=== PATIENT | female | born 1955 | race Caucasian/White ===

== ENCOUNTER 2021-06-02 11:29 | Emergency (ER) | payer MEDICARE, BC ==
[~2021-06-02] VITALS: Ht 152.4 cm; Wt 89.9 kg
--- NOTE | 2021-06-02 11:46 | PHYS DOC ---
Adult General Chief Complaint Chief Complaint: ABDOMINAL PAIN HPI HPI Patient is a 66-year-old female presenting via EMS for multiple complaints. First, patient complains she suffered a mechanical fall 3 days prior to arrival while at home. States she fell and hit the anterior portion of her head overl tarik her right eyebrow. States she felt a small goose bump on her head and was worried because she has had ongoing pain and takes Plavix. In addition, patient reports she started having generalized abdominal pain that was sharp in nature and nonfocal. This started yesterday evening and progressed throughout the night. Ongoing symptoms this morning prompted her to call EMS for transport to our facility for evaluation. She has history of 2 prior C-sections and cholecystectomy, no other intra-abdominal surgeries. She does have a history of diverticulitis and admits this pain feels similar to prior episodes. She has an extensive past medical history concerning for CAD, heart failure preserved ejection fraction and poorly controlled insulin-dependent type 2 diabetes. She has had no recent sick contacts or travel. She is fully vaccinated against COVID-19 Review of Systems Review of Systems Fourteen body systems of review of systems have been reviewed. See HPI for pertinent positives and negative responses, other adorno all other systems are negative, non-pertinent or non-contributory Physical Exam Physical Exam Constitutional: Well developed, well nourished, no acute distress, non-toxic appearance. HENT: Normocephalic, atraumatic, bilateral external ears normal, oropharynx moist, no oral exudates, nose normal. Eyes: PERRLA, EOMI, conjunctiva normal, no discharge. Neck: Normal range of motion, no tenderness, supple, no stridor. Cardiovascular: Heart rate regular, sinus rhythm, no murmurs rubs or gallops Lungs & Thorax: Bilateral breath sounds clear to auscultation Abdomen: Bowel sounds normal, soft, there is generalized tenderness with palpation with guarding present, there is rebound, no masses, no pulsatile masses. Skin: Warm, dry, no erythema, no rash. Back: No tenderness, no CVA tenderness. Extremities: No tenderness, no cyanosis, no clubbing, ROM intact, no edema. Neurologic: Alert and oriented X 3, grossly normal motor & sensory function, no focal deficits noted. Psychologic: Anxious affect and mood Current Patient Data Vital Signs Vital Signs Date Time Temp Pulse Resp B/P (MAP) Pulse Ox O2 Delivery O2 Flow Rate FiO2 06/02/21 11:35 98.7 93 17 92/47 (62) 99 Room Air Vital Signs Date Time Temp Pulse Resp B/P (MAP) Pulse Ox O2 Delivery O2 Flow Rate FiO2 06/02/21 11:35 98.7 93 17 92/47 (62) 99 Room Air Lab Results Laboratory Tests Test 06/02/21 12:18 06/02/21 12:33 Glucose (Fingerstick) 108 mg/dL White Blood Count 5.4 x10^3/uL Red Blood Count 3.65 x10^6/uL Hemoglobin 11.4 g/dL Bedside Hemoglobin gm/dL Hematocrit 34.0 % Bedside Hematocrit % Mean Corpuscular Volume 93 fL Mean Corpuscular Hemoglobin 31 pg Mean Corpuscular Hemoglobin Concent 33 g/dL Red Cell Distribution Width 13.8 % Platelet Count 287 x10^3/uL Neutrophils (%) (Auto) 71 % Lymphocytes (%) (Auto) 19 % Monocytes (%) (Auto) 6 % Eosinophils (%) (Auto) 4 % Basophils (%) (Auto) 1 % Neutrophils # (Auto) 3.8 x10^3uL Lymphocytes # (Auto) 1.0 x10^3/uL Monocytes # (Auto) 0.3 x10^3/uL Eosinophils # (Auto) 0.2 x10^3/uL Basophils # (Auto) 0.0 x10^3/uL Bedside Sodium 133 mmol/L Sodium Level mmol/L Bedside Potassium 3.7 mmol/L Potassium Level mmol/L Bedside Chloride 97 mmol/L Chloride Level mmol/L Carbon Dioxide Level 25 mmol/L Bedside Total CO2 25 mmol/L Anion Gap 15 mmol/L Bedside Blood Urea Nitrogen mg/dL Blood Urea Nitrogen 35 mg/dL Creatinine 2.5 mg/dL Bedside Creatinine mg/dL Estimated GFR (Cockcroft-Gault) 19.4 BUN/Creatinine Ratio 14 Glucose Level mg/dL Lactic Acid Level 2.5 mmol/L Calcium Level 9.6 mg/dL Bedside Ionized Calcium (Kurt) mmol/L Total Bilirubin 0.2 mg/dL Aspartate Amino Transf (AST/SGOT) 36 U/L Alanine Aminotransferase (ALT/SGPT) 37 U/L Alkaline Phosphatase 78 U/L Troponin I High Sensitivity 10 ng/L Total Protein 6.5 g/dL Albumin 3.4 g/dL Albumin/Globulin Ratio 1.1 Lipase 33 U/L SARS-CoV-2 Antigen (Rapid) Negative Current Medications Medications (Trade) Dose Ordered Sig/Koko Route PRN Reason Start Time Stop Time Status Last Admin Dose Admin Iohexol (Omnipaque 300 Mg/ml) 75 ml 1X ONCE IV 06/02/21 12:00 06/02/21 11:52 DC Sodium Chloride 500 ml @ 0 mls/hr 1X ONCE IV 06/02/21 12:00 06/02/21 12:36 DC 06/02/21 12:20 Metoclopramide HCl (Reglan Vial) 10 mg 1X ONCE IVP 06/02/21 13:00 06/02/21 13:01 DC 06/02/21 13:06 Fentanyl Citrate (Fentanyl 2ml Vial) 50 mcg 1X ONCE IVP 06/02/21 13:00 06/02/21 13:02 DC 06/02/21 13:06 Fentanyl Citrate (Fentanyl 2ml Vial) 100 mcg STK-MED ONCE .ROUTE 06/02/21 13:02 06/02/21 13:02 DC EKG EKG EKG ordered and interpreted by myself at 1204 hrs. is sinus rhythm at 78 bpm, un remarkable intervals, no axis deviation, no obvious ischemic findings, no STEMI Radiology/Procedures Radiology/Procedures CT HEAD/BRAIN WO History: Reason: fall to head on plavix / Spl. Instructions: / History:. Pain Comparison: None. Technique: Noncontrast CT imaging was performed of the head. Exposure: One or more of the following individualized dose reduction techniques were utilized for this examination: 1. Automated exposure control 2. Adjustment of the mA and/or kV according to patient size 3. Use of iterative reconstruction technique. Findings: No intracranial hemorrhage. No mass effect. No hydrocephalus. Extra-axial spaces are unremarkable. Imaged orbits are unremarkable. Imaged paranasal sinuses and mastoid air cells are clear. No acute calvarial fracture. Impression: 1. No acute intracranial abnormality. Electronically signed by: Lake Jenkins DO (06/02/2021 12:33 PM) [facility] ////////////// XR CHEST 1V History: Reason: CHF / Spl. Instructions: / History: Comparison: None. Findings: No consolidation or pleural effusion. Normal heart size. No pneumothorax. Impression: 1. No acute cardiopulmonary process. Electronically signed by: Lake Jenkins DO (06/02/2021 12:34 PM) [facility] ////////////////////////////////////////// CT ABDOMEN+PELVIS WO History: Reason: Pain R/O ILEUS VS SBO / Spl. Instructions: / History: Technique: Noncontrast examination of the abdomen and pelvis. Coronal and sagittal reconstructions were performed. Exposure: One or more of the following individualized dose reduction techniques were utilized for this examination: 1. Automated exposure control 2. Adjustment of the mA and/or kV according to patient size 3. Use of iterative reconstruction technique. Comparison: None Findings: Lower chest: No consolidation or pleural effusion. Abdomen and pelvis: The liver, spleen, adrenal glands, and pancreas are unremarkable. Prior cholecystectomy. IVC filter noted. Mild left renal atrophy. No renal calculus. No hydronephrosis. Decompressed urinary bladder. Decompressed transverse colon. Normal appendix. No evidence of bowel obstruction. No pathologic lymphadenopathy. No ascites. Atheromatous plaque throughout the nonaneurysmal abdominal aorta and branch vessels. Bones: Multilevel lumbar spondylosis most prominent L4-5 and L5-S1. Impression: 1. No acute abdominal or pelvic pathology. Electronically signed by: Lake Jenkins DO (06/02/2021 12:41 PM) [facility] Heart Score C/O Chest Pain: No HEART Score for Chest Pain: HEART Score for Chest Pain Response (Comments) Value History Slighlty/Non-Suspicious 0 ECG Normal 0 Age >45 - < 65 1 Risk Factors >3 Risk Factors or Hx CAD 2 Troponin < Normal Limit 0 Total 3 Risk Factors: Risk Factors: DM, Current or recent (<one month) smoker, HTN, HLP, family history of CAD, obesity. Risk Scores: Risk Factors: DM, Current or recent (<one month) smoker, HTN, HLP, family history of CAD, obesity. Course & Med Decision Making Course & Med Decision Making ABCs unremarkable. I disclosed entirety of ER findings that were all nonconcerning without any further indication for further diagnostic work-up in ER setting or need for hospital transfer or hospitalization. Continued supportive care and close glycemic control with adherence to previously prescribed medication regimen advised. Plan of care discussed at length with need for close outpatient follow-up to review today's ER visit stressed. Strict return precautions were also discussed at length with good understanding verbalized by patient. Patient voiced understanding and agreement with the plan. Patient knows to come back for repeat evaluation if concerning signs or symptoms present prior to outpatient follow-up. Hemodynamically stable, ambulatory and we ll-appearing at time of disposition. Dragon Disclaimer Dragon Disclaimer This electronic medical record was generated, in whole or in part, using a voice recognition dictation system. Departure Departure: Impression: Primary Impression: Abdominal pain Additional Impressions: History of recent fall Diabetic gastroparesis associated with type 2 diabetes mellitus Disposition: HOME / SELF CARE / HOMELESS Condition: STABLE Additional Instructions: You have been evaluated in the Emergency Department today for abdominal pain. Your evaluation was not suggestive of any emergent condition requiring medical intervention at this time. However, some abdominal problems make take more time to appear. Therefore, it is important for you to watch for any new symptoms or worsening of your current condition. You have been prescribed Reglan which is an antinausea medication that should help alleviate some of your symptoms in addition to your gastroparesis symptoms Need to contact your primary care physician first thing tomorrow morning to review ER visit today and need for close outpatient follow-up within upcoming 48 hours Return to the Emergency Department if you experience worsening pain, persistent fevers greater than 100.4, recurrent vomiting, blood in vomit, blood in stool, dark tarry stool, chest pain, difficulty breathing, or any other concerning symptoms. Scripts Metoclopramide Hcl (REGLAN) 10 Mg Tablet 1 TAB PO TID for nausea, #30 TAB 0 Refills before food and bedtime Prov: CHARITO ALVARADO DO 06/02/21 Problem Qualifiers CHARITO ALVARADO DO Jun 02, 2021 11:45
[2021-06-02] MEDS ORDERED: IOHEXOL 300 MG/ML 75 ML VIAL. IV ONE (12:00)
[2021-06-02] MEDS ORDERED: IV NORMAL SALINE 500ML 500 ML IV ONE (12:00)
--- NOTE | 2021-06-02 12:07 | EKG ---
[address] [address] Test Date: 2021-06-02 Test Time: 11:55:30 Pat Name: JERICA FERRERA Department: Room: Gender: F On Call: JOSE E : 1955 Requested By: CHARITO ALVARADO Order Number: [id number] Reading MD: Rayo Stinson Measurements Intervals [place] Rate: 78 P: 47 CA: 180 QRS: 15 QRSD: 64 T: 75 QT: 390 QTc: 448 Interpretive Statements SINUS RHYTHM QRS(T) CONTOUR ABNORMALITY CONSISTENT WITH POSSIBLE OLD ANTEROSEPTAL INFARCT T ABNORMALITY IN HIGH LATERAL LEADS ABNORMAL ECG RI6.02 No previous ECG available for comparison Electronically Signed On 06-03-2021 9:02:34 [employer] by Rayo Stinson
--- NOTE | 2021-06-02 12:35 | RAD ---
CT HEAD/BRAIN WO History: Reason: fall to head on plavix / Spl. Instructions: / History:. Pain Comparison: None. Technique: Noncontrast CT imaging was performed of the head. Exposure: One or more of the following individualized dose reduction techniques were utilized for thi s examination: 1. Automated exposure control 2. Adjustment of the mA and/or kV according to patient size 3. Use of iterative reconstruction technique. Findings: No intracranial hemorrhage. No mass effect. No hydrocephalus. Extra-axial spaces are unremarkable. Imaged orbits are unremarkable. Imaged paranasal sinuses and mastoid air cells are clear. No acute ca lvarial fracture. Impression: 1. No acute intracranial abnormality. Electronically signed by: Lake Jenkins DO (06/02/2021 12:33 PM) [facility]
--- NOTE | 2021-06-02 12:37 | RAD ---
XR CHEST 1V History: Reason: CHF / Spl. Instructions: / History: Comparison: None. Findings: No consolidation or pleural effusion. Normal heart size. No pneumothorax. Impression: 1. No acute cardiopulmonary process. Electronically signed by: Lake Jenkins DO (06/02/2021 12:34 PM) [facility]
--- NOTE | 2021-06-02 12:44 | RAD ---
CT ABDOMEN+PELVIS WO History: Reason: Pain R/O ILEUS VS SBO / Spl. Instructions: / History: Technique: Noncontrast examination of the abdomen and pelvis. Coronal and sagittal reconstructions we re performed. Exposure: One or more of the following individualized dose reduction techniques were utilized for thi s examination: 1. Automated exposure control 2. Adjustment of the mA and/or kV according to patient size 3. Use of iterative reconstruction technique. Comparison: None Findings: Lower chest: No consolidation or pleural effusion. Abdomen and pelvis: The liver, spleen, adrenal glands, and pancreas are unremarkable. Prior cholecyst ectomy. IVC filter noted. Mild left renal atrophy. No renal calculus. No hydronephrosis. Decompressed urinary bladder. Decompressed transverse colon. Normal appendix. No evidence of bowel obstruction. No pathologic lymph adenopathy. No ascites. Atheromatous plaque throughout the nonaneurysmal abdominal aorta and branch v essels. Bones: Multilevel lumbar spondylosis most prominent L4-5 and L5-S1. Impression: 1. No acute abdominal or pelvic pathology. Electronically signed by: Lake Jenkins DO (06/02/2021 12:41 PM) [facility]
[2021-06-02] MEDS ORDERED: METOCLOPRAMIDE HCL 10 MG/2 ML VIAL. IVP ONE (13:00)
[2021-06-02 13:05] LABS: BASO % 1 % (0-3); EOS # 0.2 x10^3/uL (0.0-0.7); EOS % 4 % (0-3); HEMOGLOBIN 11.4 g/dL (12.0-15.5); LYMPH % 19 % (24-48); MEAN CORPUSCULAR HEMOGLOBIN 31 pg (25-35); MEAN CORPUSCULAR HGB CONC 33 g/dL (31-37); MEAN CORPUSCULAR VOLUME 93 fL (79-100); MONO # 0.3 x10^3/uL (0.0-1.1); MONO % 6 % (0-9); NEUT # 3.8 x10^3uL (1.8-7.7); NEUT % 71 % (31-73); PLATELET COUNT 287 x10^3/uL (140-400); RED BLOOD COUNT 3.65 x10^6/uL (3.50-5.40); RED CELL DISTRIBUTION WIDTH 13.8 % (11.5-14.5); WHITE BLOOD COUNT 5.4 x10^3/uL (4.0-11.0)
[2021-06-02 13:16] LABS: ANION GAP 14 (6-14); BLOOD UREA NITROGEN 35 mg/dL (7-20); BUN/CREATININE RATIO 14 (6-20); CALCIUM 9.6 mg/dL (8.5-10.1); CARBON DIOXIDE 25 mmol/L (21-32); CREATININE 2.5 mg/dL (0.6-1.0); GFR 19.4; GLUCOSE 104 mg/dL (70-99)
[2021-06-02 13:19] LABS: POTASSIUM ISTAT 3.7 mmol/L (3.5-5.0)
[2021-06-02 13:22] LABS: ALBUMIN 3.4 g/dL (3.4-5.0); ALBUMIN/GLOBULIN RATIO 1.1 (1.0-1.7); ALK PHOS 78 U/L (46-116); ALT (SGPT) 37 U/L (14-59); AST (SGOT) 36 U/L (15-37); LIPASE 33 U/L (73-393); SODIUM ISTAT 133 mmol/L (135-145); TOTAL BILIRUBIN 0.2 mg/dL (0.2-1.0); TOTAL PROTEIN 6.5 g/dL (6.4-8.2)
[2021-06-02] MEDS ORDERED: METO10TA81 PO (14:14)
[2021-06-02 14:45] VITALS: BP 142/68
== END 2021-06-02 15:00 | disposition home or self-care (01) ==
LOC: ER 11:29
DX: E11.43 Type 2 diabetes mellitus with diabetic autonomic (poly)neuropathy (principal); K31.84 Gastroparesis; R10.84 Generalized abdominal pain; I25.10 Atherosclerotic heart disease of native coronary artery without angina pectoris; Z20.822 Contact with and (suspected) exposure to COVID-19; W18.09XA Striking against other object with subsequent fall, initial encounter; Y93.89 Activity, other specified; Y92.89 Other specified places as the place of occurrence of the external cause; Y99.8 Other external cause status
CPT/HCPCS: 70450; 71045; 74176; 80047; 80053; 82947; 83690; 84484; 85025; 87040; 87426; 93005; 96361; 96374; 96375; 96376; 99285; C9803; J2765; J3010; J7040; U0003

== ENCOUNTER 2021-11-17 17:29 | Emergency (ER) | payer MEDICARE, BC ==
[~2021-11-17] VITALS: Ht 152.4 cm; Wt 73.9 kg
[~2021-11-17 17:29] MED LIST: ACET325T21 PO; ALLO100T PO; ASCO500C PO; ASPI-630 PO; ATORVASTATIN CA80 MG PO; CALC0.2530 PO; CARV12.547 PO; CLOP75TA PO; CYAN50009 PO; DOCU-109 PO; DULO60CA7 PO; FENT1PAT15 TD; FERR325T14 PO; FOLI20CA PO; GABA600T7 PO; HYDR-2868 PO; HYDR2TAB31 PO; ISOS60TA55 PO; LEVO125T70 PO; MAGN400C PO; METO10TA81 PO; METO2.5T PO; MULT-245 PO; NITR0.4T22 SL; NYST15PO9 TP; OXYB5TAB10 PO; PANT40TA6 PO; TORS20TA2 PO; VITA1TAB31 PO
[2021-11-17 18:56] LABS: BASO % 1 % (0-3); EOS # 0.4 x10^3/uL (0.0-0.7); EOS % 5 % (0-3); HEMATOCRIT 33.7 % (36.0-47.0); HEMOGLOBIN 11.1 g/dL (12.0-15.5); LYMPH # 1.5 x10^3/uL (1.0-4.8); LYMPH % 18 % (24-48); MEAN CORPUSCULAR HEMOGLOBIN 31 pg (25-35); MEAN CORPUSCULAR HGB CONC 33 g/dL (31-37); MEAN CORPUSCULAR VOLUME 93 fL (79-100); MONO # 0.4 x10^3/uL (0.0-1.1); MONO % 5 % (0-9); NEUT # 5.9 x10^3uL (1.8-7.7); NEUT % 72 % (31-73); PLATELET COUNT 244 x10^3/uL (140-400); RED BLOOD COUNT 3.63 x10^6/uL (3.50-5.40); WHITE BLOOD COUNT 8.2 x10^3/uL (4.0-11.0)
[2021-11-17 18:57] LABS: CALCIUM 8.8 mg/dL (8.5-10.1); CREATININE 1.6 mg/dL (0.6-1.0); GFR 32.5; POTASSIUM 4.7 mmol/L (3.5-5.1)
[2021-11-17 19:04] LABS: ALBUMIN 2.9 g/dL (3.4-5.0); MAGNESIUM 2.1 mg/dL (1.8-2.4); TOTAL BILIRUBIN 0.2 mg/dL (0.2-1.0); TOTAL PROTEIN 5.8 g/dL (6.4-8.2)
--- NOTE | 2021-11-17 19:20 | RAD ---
Exam Date: 11/17/2021 6:[address] HEAD/BRAIN WO Indication: Reason: weakness / Spl. Instructions: / History: . TECHNIQUE: Head CT was performed without intravenous contrast. One or more of the following dose re duction techniques were utilized: *Automated exposure control (AEC) *Adjustment of mA and/or kV according to patient size *Use of iterative reconstruction technique *CT scan done according to ALARA, or ALARA/IMAGE GENTLY COMPARISON: October 29, 2021 FINDINGS: The ventricles and sulci are prominent consistent with cerebral volume loss. Patchy ill-defined low attenuation areas in the subcortical and periventricular white matter bilaterally are consistent with microvascular disease. There is no evidence of acute intracranial hemorrhage, extra-axial collecti on, mass effect, midline shift, or acute territorial infarct. No lesion of the skull base or the calv arium is seen. The visualized paranasal sinuses, mastoid air cells and orbits are normal in appearanc e. IMPRESSION: No evidence for acute intracranial abnormality. Volume loss and microvascular disease. Electronically signed by: Anibal Lewis MD (11/17/2021 7:17 PM) [id number]
--- NOTE | 2021-11-17 19:22 | EKG ---
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
--- NOTE | 2021-11-17 19:29 | PHYS DOC ---
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 "I have also felt very weak". Patient states that she was just discharged from the ICU for meningitis and also had a stent placed while in the hospital. Patient is denying chest pain, shortness of breath. Denies fevers. History of hypertension, hyperlipidemia, renal disease, AR. (MICKIE PALMER APRN) Review of Systems: Review of Systems: ROS At least 10 ROS systems have been reviewed and are negative except as documented in the HPI. General: Negative except as outlined in HPI above. Skin: Negative except as outlined in HPI above. HEENT: Negative except as outlined in HPI above. Neck: Negative except as outlined in HPI above. Respiratory: Negative except as outlined in HPI above.. Cardiovascular: Negative except as outlined in HPI above. Abdomen: Negative except as outlined in HPI above. : Negative except as outlined in HPI above. Back/MSK: Negative except as outlined in HPI above. Neuro: Negative except as outlined in HPI above. Psych: Negative except as outlined in HPI above. (MICKIE PALMER APRN) Allergies: Allergies: Allergies Coded Allergies Type Severity Reaction Last Updated Verified morphine Allergy Severe 06/02/21 Yes oxycodone Allergy Severe 06/02/21 Yes pregabalin Allergy Severe 06/02/21 Yes (MICKIE PALMER APRN) Physical Exam: PE: Constitutional: Well developed, well nourished, no acute distress, non-toxic appearance. [] HENT: Normocephalic, atraumatic, bilateral external ears normal, oropharynx moist, no oral exudates, nose normal. [] Eyes: PERRLA, EOMI, conjunctiva normal, no discharge. [] Neck: Normal range of motion, no tenderness, supple, no stridor. [] Cardiovascular:Heart rate regular rhythm, no murmur [] Lungs & Thorax: Bilateral breath sounds clear to auscultation [] Abdomen: Bowel sounds normal, soft, no tenderness, no masses, no pulsatile masses. [] Skin: Warm, dry, no erythema, no rash. [] Back: No tenderness, no CVA tenderness. [] Extremities: No tenderness, no cyanosis, no clubbing, ROM intact, no edema. [] Neurologic: Alert and oriented X 3, normal motor function, normal sensory function, no focal deficits noted. [] Psychologic: Affect normal, judgement normal, mood normal. [] (MICKIE PALMER APRN) Current Patient Data: Labs: Laboratory Tests Test 11/17/21 18:10 White Blood Count 8.2 x10^3/uL (4.0-11.0) Red Blood Count 3.63 x10^6/uL (3.50-5.40) Hemoglobin 11.1 g/dL (12.0-15.5) L Hematocrit 33.7 % (36.0-47.0) L Mean Corpuscular Volume 93 fL (79-100) Mean Corpuscular Hemoglobin 31 pg (25-35) Mean Corpuscular Hemoglobin Concent 33 g/dL (31-37) Red Cell Distribution Width 15.0 % (11.5-14.5) H Platelet Count 244 x10^3/uL (140-400) Neutrophils (%) (Auto) 72 % (31-73) Lymphocytes (%) (Auto) 18 % (24-48) L Monocytes (%) (Auto) 5 % (0-9) Eosinophils (%) (Auto) 5 % (0-3) H Basophils (%) (Auto) 1 % (0-3) Neutrophils # (Auto) 5.9 x10^3uL (1.8-7.7) Lymphocytes # (Auto) 1.5 x10^3/uL (1.0-4.8) Monocytes # (Auto) 0.4 x10^3/uL (0.0-1.1) Eosinophils # (Auto) 0.4 x10^3/uL (0.0-0.7) Basophils # (Auto) 0.0 x10^3/uL (0.0-0.2) Sodium Level 134 mmol/L (136-145) L Potassium Level 4.7 mmol/L (3.5-5.1) Chloride Level 98 mmol/L (98-107) Carbon Dioxide Level 32 mmol/L (21-32) Anion Gap 4 (6-14) L Blood Urea Nitrogen 28 mg/dL (7-20) H Creatinine 1.6 mg/dL (0.6-1.0) H Estimated GFR (Cockcroft-Gault) 32.5 BUN/Creatinine Ratio 18 (6-20) Glucose Level 143 mg/dL (70-99) H Calcium Level 8.8 mg/dL (8.5-10.1) Magnesium Level 2.1 mg/dL (1.8-2.4) Total Bilirubin 0.2 mg/dL (0.2-1.0) Aspartate Amino Transferase (AST) 15 U/L (15-37) Alanine Aminotransferase (ALT) 26 U/L (14-59) Alkaline Phosphatase 102 U/L (46-116) Troponin I High Sensitivity 16 ng/L (4-50) Total Protein 5.8 g/dL (6.4-8.2) L Albumin 2.9 g/dL (3.4-5.0) L Albumin/Globulin Ratio 1.0 (1.0-1.7) Lipase 28 U/L (73-393) L (MICKIE PALMER VP DATA) EKG: EKG: [] (MICKIE PALMER VP DATA) Radiology/Procedures: Radiology/Procedures: []Exam Date: 11/17/2021 6:[address] HEAD/BRAIN WO Indication: Reason: weakness / Spl. Instructions: / History: . TECHNIQUE: Head CT was performed without intravenous contrast. One or more of the following dose reduction techniques were utilized: *Automated exposure control (AEC) *Adjustment of mA and/or kV according to patient size *Use of iterative reconstruction technique *CT scan done according to ALARA, or MEGANRA/IMAGE GENTLY COMPARISON: October 29, 2021 FINDINGS: The ventricles and sulci are prominent consistent with cerebral volume loss. P atchy ill-defined low attenuation areas in the subcortical and periventricular white matter bilaterally are consistent with microvascular disease. There is no evidence of acute intracranial hemorrhage, extra-axial collection, mass effect, midline shift, or acute territorial infarct. No lesion of the skull base or the calvarium is seen. The visualized paranasal sinuses, mastoid air cells and orbits are normal in appearance. IMPRESSION: No evidence for acute intracranial abnormality. Volume loss and microvascular disease. Electronically signed by: Anibal Lewis MD (11/17/2021 7:17 PM) [id number] (MICKIE PALMER APRN) Heart Score: C/O Chest Pain: No Risk Factors: Risk Factors: DM, Current or recent (<one month) smoker, HTN, HLP, family history of CAD, obesity. Risk Scores: Score 0 - 3: 2.5% MACE over next 6 weeks - Discharge Home Score 4 - 6: 20.3% MACE over next 6 weeks - Admit for Clinical Observation Score 7 - 10: 72.7% MACE over next 6 weeks - Early Invasive Strategies (MICKIE PALMER APRN) Course & Med Decision Making: Course & Med Decision Making Pertinent Labs and Imaging studies reviewed. (See chart for details) [] 62 4F who presents with nausea/vomiting since this morning. Patient was just recently discharged from [facility] after having a stent placed along with staying in the ICU for meningitis. Patient reports ataxia since she got out of the hospital and has had multiple falls. Patient also reports trouble finding her words and weakness. Patient does currently take at home oral Dilaudid for gastroparesis. Patient is afebrile. Denying chest pain or shortness of breath. Work-up in ER consisted of CBC, CMP, urinalysis, chest x- ray, CT head. . CT head was unremarkable. NIH of 2. Troponin is negative. BUN 28, creatinine of 1.6, which is baseline for patient. All other labs are unremarkable. I discussed with patient that it would be in her best interest to be admitted for further management and testing. Patient agrees with admission plan. I conta cted Dr. Hills who will be accepting patient at [facility] for further testing. Patient will be admitted for ataxia, weakness, nausea vomiting (MICKIE PALMER APRN) Dragon Disclaimer: Dragon Disclaimer: This electronic medical record was generated, in whole or in part, using a voice recognition dictation system. (MICKIE PALMER APRN) Departure Departure: Impression: Primary Impression: Ataxia Additional Impressions: Generalized weakness Nausea & vomiting Qualified Codes: R11.2 - Nausea with vomiting, unspecified Disposition: ADMITTED INPATIENT Admitting Physician: Mignon Rodriguez (MICKIE PALMER APRN) Condition: STABLE Referrals: PCP,MIRIAM (PCP) Attending Signature Attending Signature I have participated in the care of this patient and I have reviewed and agree with all pertinent clinical information above including history, exam, and recommendations. (JEFF MEDINA MD) Dragon Disclaimer This chart was dictated in whole or in part using Voice Recognition software in a busy, high-work load, and often noisy Emergency Department environment. It may contain unintended and wholly unrecognized errors or omissions. (JEFF MEDINA MD) MICKIE PALMER APRN Nov 17, 2021 19:29 JEFF MEDINA MD Nov 18, 2021 20:31
[2021-11-17] MEDS ORDERED: diphenhydrAMINE 50 MG/ML VIAL IM ONE (19:30)
[2021-11-17] MEDS ORDERED: METOCLOPRAMIDE HCL 10 MG/2 ML VIAL. IM ONE (19:30)
[2021-11-17 20:42] LABS: CLARITY,URINE CLEAR; COLOR,URINE YELLOW; GLUCOSE,URINE NEG (NEG)
[2021-11-17 20:43] LABS: BACTERIA,URINE 0 /HPF (0-FEW); NITRITE,URINE NEG (NEG); RBC,URINE OCC /HPF (0-2); SQUAMOUS EPITHELIAL CELL,UR MOD /LPF; UROBILINOGEN,URINE 0.2 mg/dL (0.2 mg/dL); WBC,URINE 0 /HPF (0-4)
[2021-11-17 21:09] LABS: BARBITURATES NEG (NEG); BENZODIAZEPINES NEG (NEG); CANNABINOIDS NEG (NEG); COCAINE NEG (NEG); METHADONE NEG (NEG); PHENCYCLIDINE NEG (NEG)
[2021-11-17 21:15] LABS: AMPHETAMINE/METHAMPHETAMINE NEG (NEG)
[2021-11-17 21:45] VITALS: BP 107/68
--- NOTE | 2021-11-17 23:03 | RAD ---
Study: XR CHEST 1V Indication: Weakness. Comparison: 10/29/2021 Findings: Upper limits of normal size of the cardiomediastinal silhouette but accentuated by AP technique. Manuelito nary artery stenting. Similar hilar configuration from the prior. No confluent airspace infiltrate, l ayering effusion or pneumothorax. Impression: No acute radiographic abnormality of the chest. No significant change from 10/29/2021. Electronically signed by: TORSTEN DAVALOS MD (11/17/2021 11:01 PM) [facility]
== END 2021-11-17 22:30 | disposition admitted as inpatient to this hospital (09) ==
LOC: ER 17:29
DX: R27.0 Ataxia, unspecified (principal); R53.1 Weakness; R11.2 Nausea with vomiting, unspecified; I13.10 Hypertensive heart and chronic kidney disease without heart failure, with stage 1 through stage 4 chronic kidney disease, or unspecified chronic kidney disease; N18.9 Chronic kidney disease, unspecified; I25.10 Atherosclerotic heart disease of native coronary artery without angina pectoris; E78.00 Pure hypercholesterolemia, unspecified; I25.2 Old myocardial infarction; F17.210 Nicotine dependence, cigarettes, uncomplicated; Z88.5 Allergy status to narcotic agent; Z88.8 Allergy status to other drugs, medicaments and biological substances
CPT/HCPCS: 36415; 70450; 71045; 80053; 80307; 81001; 83690; 83735; 84484; 85025; 93005; 96372; 99285; J1200; J2765

== ENCOUNTER 2021-12-22 15:37 | Emergency (ER) | payer MEDICARE, BC ==
[~2021-12-22] VITALS: Ht 152.4 cm; Wt 73.9 kg
--- NOTE | 2021-12-22 17:44 | RAD ---
XR CHEST 1V History: Reason: shortness of breath / Spl. Instructions: / History: Comparison: November 17, 2021 Findings: Multifocal patchy and ill-defined opacities bilaterally. No pleural effusion. No pneumothorax. Normal heart size. Impression: 1. Multifocal opacities bilaterally, may represent pneumonia including viral pneumonia. Electronically signed by: Lake Jenkins DO (12/22/2021 5:41 PM) [facility] – [place], [place]
--- NOTE | 2021-12-22 18:17 | PHYS DOC ---
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 The patient states that she was recently admitted at [facility] last week for treatment of aspiration pneumonia. Was released 5 days ago and discharged on oral antibiotic. She states that since her release she has still had worsening shortness of breath. She now notes wors ening chest pain in association with her shortness of breath. Noted history of coronary artery disease and congestive heart failure. Has not had any fevers or abdominal pain. States that her pain symptoms have been primarily on the right side of her chest. Notes significant worsening dyspnea with exertion at home. Was brought to the emergency department by EMS. (RUBEN TIRADO MD) Review of Systems Review of Systems Constitutional: Denies fever or chills [] Eyes: Denies change in visual acuity, redness, or eye pain [] HENT: Denies nasal congestion or sore throat [] Respiratory: Cough, shortness of breath [] Cardiovascular: Chest pain, edema [] GI: Denies abdominal pain, nausea, vomiting, bloody stools or diarrhea [] : Denies dysuria or hematuria [] Musculoskeletal: Denies back pain or joint pain [] Integument: Denies rash or skin lesions [] Neurologic: Denies headache, focal weakness or sensory changes [] All other systems were reviewed and found to be within normal limits, except as documented in this note. (RUBEN TIRADO MD) Allergies Allergies Allergies Coded Allergies Type Severity Reaction Last Updated Verified morphine Allergy Severe 06/02/21 Yes oxycodone Allergy Severe 06/02/21 Yes pregabalin Allergy Severe 06/02/21 Yes (RUBEN TIRADO MD) Physical Exam Physical Exam Constitutional: Alert, afebrile, appears in mild to moderate respiratory distre ss. [] HENT: Normocephalic, atraumatic, bilateral external ears normal, oropharynx moist, no oral exudates, nose normal. [] Eyes: PERRLA, EOMI, conjunctiva normal, no discharge. [] Neck: Normal range of motion, no tenderness, supple, no stridor. [] Cardiovascular:Heart rate regular rhythm, no murmur [] Lungs & Thorax: Mild accessory muscle usage present, rales bilaterally, no wheezes [] Abdomen: Bowel sounds normal, soft, no tenderness, no masses, no pulsatile masses. [] Skin: Warm, dry, no erythema, no rash. [] Back: No tenderness, no CVA tenderness. [] Extremities: No tenderness, no cyanosis, no clubbing, ROM intact, 2+ pedal edema in the bilateral lower extremities. [] Neurologic: Alert and oriented X 3, normal motor function, normal sensory function, no focal deficits noted. [] (RUBEN TIRADO MD) EKG EKG Interpreted by me: Heart rate 93, sinus rhythm, normal intervals, no acute ST/T wave abnormalities present [] (RUBEN TIRADO MD) Radiology/Procedures Radiology/[place] [address] IMAGING REPORT Signed PATIENT: JERICA FERRERA ACCOUNT: [id number] : 1955 LOCATION: ER AGE: 66 SEX: F EXAM STATUS: REG ER ORD. PHYSICIAN: RUBEN TIRADO MD REASON: shortness of breath PROCEDURE: PORTABLE CHEST 1V XR CHEST 1V History: Reason: shortness of breath / Spl. Instructions: / History: Comparison: November 17, 2021 Findings: Multifocal patchy and ill-defined opacities bilaterally. No pleural effusion. No pneumothorax. Normal heart size. Impression: 1. Multifocal opacities bilaterally, may represent pneumonia including viral pneumonia. Electronically signed by: Lake Jenkins DO (12/22/2021 5:41 PM) [facility] DICTATED AND SIGNED BY: LAKE JENKINS DO DATE: 12/22/21 174 CC: RUBEN TIRADO MD; PCP,NO ~ [] (RUBEN TIRADO MD) Heart Score C/O Chest Pain: Yes HEART Score for Chest Pain: HEART Score for Chest Pain Response (Comments) Value History Moderately Suspicious 1 ECG Normal 0 Age >45 - < 65 1 Risk Factors >3 Risk Factors or Hx CAD 2 Total 4 Risk Factors: Risk Factors: DM, Current or recent (<one month) smoker, HTN, HLP, family history of CAD, obesity. Risk Scores: Risk Factors: DM, Current or recent (<one month) smoker, HTN, HLP, family history of CAD, obesity. (RUBEN TIRADO MD) C/O Chest Pain: Yes HEART Score for Chest Pain: HEART Score for Chest Pain Response (Comments) Value Troponin < Normal Limit 0 Total 0 (BEATRIS NARVAEZ MD) Course & Med Decision Making Course & Med Decision Making Pertinent Labs and Imaging studies reviewed. (See chart for details) Patient x-ray was interpreted with multifocal patchy infiltrate. Concern for worsening pneumonia as well as possible congestive heart failure exacerbation. At time of signout, blood work is pending. Care of patient signed out to Dr. Narvaez at 1815. [] (RUBEN TIRADO MD) Course & Med Decision Making Patient was recently at [place] and had a BNP of 4.4K on 517, today is 18 K. Patient states that she has a primary care provider whose name starts with a "W" but does not member his name because she has not been to see him. Discussed admission for heart failure exacerbation, patient requesting transfer to [place]. Patient admitted to hospitalist, Dr. Diez. (BEATRIS NARVAEZ MD) Dragon Disclaimer Dragon Disclaimer This electronic medical record was generated, in whole or in part, using a voice recognition dictation system. (RUBEN TIRADO MD) Departure Departure: Impression: Primary Impression: Dyspnea on exertion Additional Impressions: Atypical pneumonia CHF exacerbation Disposition: 02 SHORT TERM HOSPITAL Condition: STABLE Referrals: PCP,NO (PCP) Problem Qualifiers RUBEN TIRADO MD December 22, 2021 18:17 BEATRIS NARVAEZ MD December 22, 2021 19:26
[2021-12-22 18:43] LABS: INFLUENZA A PATIENT NEGATIVE (NEGATIVE); INFLUENZA B PATIENT NEGATIVE (NEGATIVE)
[2021-12-22 21:52] LABS: BASO # 0.1 x10^3/uL (0.0-0.2); BASO % 1 % (0-3); EOS # 0.1 x10^3/uL (0.0-0.7); EOS % 1 % (0-3); HEMATOCRIT 35.8 % (36.0-47.0); HEMOGLOBIN 11.5 g/dL (12.0-15.5); LYMPH % 11 % (24-48); MEAN CORPUSCULAR HEMOGLOBIN 30 pg (25-35); MEAN CORPUSCULAR HGB CONC 32 g/dL (31-37); MEAN CORPUSCULAR VOLUME 94 fL (79-100); MONO # 0.3 x10^3/uL (0.0-1.1); MONO % 3 % (0-9); NEUT # 7.7 x10^3uL (1.8-7.7); NEUT % 84 % (31-73); PLATELET COUNT 452 x10^3/uL (140-400); RED BLOOD COUNT 3.82 x10^6/uL (3.50-5.40); RED CELL DISTRIBUTION WIDTH 14.5 % (11.5-14.5); WHITE BLOOD COUNT 9.1 x10^3/uL (4.0-11.0)
[2021-12-22] MEDS: NITROGLYCERIN SUBLINGUAL 0.4 MG BOTTLE OF 25. SL PRN ×3 (22:00→23:46)
[2021-12-22 22:03] LABS: CREATININE 1.2 mg/dL (0.6-1.0); GFR 45.2; POTASSIUM 4.7 mmol/L (3.5-5.1)
[2021-12-22 22:15] LABS: ALBUMIN 2.4 g/dL (3.4-5.0); ALBUMIN/GLOBULIN RATIO 0.6 (1.0-1.7); TOTAL BILIRUBIN 0.5 mg/dL (0.2-1.0); TOTAL PROTEIN 6.2 g/dL (6.4-8.2)
[2021-12-22] MEDS ORDERED: FUROSEMIDE 100 MG/10 ML VIAL IVP ONE (22:45)
[2021-12-22] MEDS ORDERED: ASPIRIN CHEWABLE 81 MG TABLET. PO ONE (22:45)
[2021-12-23] MEDS ORDERED: NITROGLYCERIN OINT 1 GM PACKET. TP ONE (02:00)
[2021-12-23 02:15] LABS: CLARITY,URINE CLEAR; COLOR,URINE YELLOW; GLUCOSE,URINE 500 mg/dL (NEG); NITRITE,URINE NEG (NEG); UROBILINOGEN,URINE 0.2 mg/dL (0.2 mg/dL)
[2021-12-23 02:16] LABS: BACTERIA,URINE FEW /HPF (0-FEW); RBC,URINE OCC /HPF (0-2); SQUAMOUS EPITHELIAL CELL,UR FEW /LPF
[2021-12-23 02:17] VITALS: BP 191/88
== END 2021-12-23 02:33 | disposition short-term general hospital (02) ==
LOC: ER 15:37
DX: J18.9 Pneumonia, unspecified organism (principal); I11.0 Hypertensive heart disease with heart failure; I50.9 Heart failure, unspecified; I25.10 Atherosclerotic heart disease of native coronary artery without angina pectoris; E78.00 Pure hypercholesterolemia, unspecified; I25.2 Old myocardial infarction; F17.210 Nicotine dependence, cigarettes, uncomplicated; Z20.822 Contact with and (suspected) exposure to COVID-19; Z88.5 Allergy status to narcotic agent; Z88.8 Allergy status to other drugs, medicaments and biological substances
CPT/HCPCS: 36415; 71045; 80053; 81001; 83605; 83735; 83880; 84484; 85025; 87040; 87086; 87426; 87428; 93005; 96374; 96375; 99285; C9803; J3010; U0003